=== PATIENT | female | born 1995 | race African-American/Black ===

== ENCOUNTER 2017-05-22 15:41 | Emergency (ER) | payer OTHER ==
[~2017-05-22] VITALS: Ht 172.7 cm; Wt 136.1 kg
[2017-05-22] MEDS ORDERED: GUAIFEN-CODEIN120 ML PO (16:27)
[2017-05-22] MEDS ORDERED: VENTOLIN HFA 1818 GM INH (16:27)
[2017-05-22] MEDS ORDERED: TESSALON PERLE100 MG PO (16:27)
[2017-05-22 16:50] VITALS: BP 154/85
== END 2017-05-22 16:50 | disposition home or self-care (01) ==
LOC: ER 15:41
DX: J40 Bronchitis, not specified as acute or chronic (principal); J06.9 Acute upper respiratory infection, unspecified